=== PATIENT | female | born 1950 | race Hispanic/Latino ===

== ENCOUNTER 2017-05-23 07:43 | Day surgery (SDC) | payer BC ==
[2017-05-14 12:15] VITALS: BMI 30.4
--- NOTE | 2017-05-22 13:43 | HP ---
DATE OF ADMISSION: 05/22/2017 REASON FOR ADMISSION: Left heart catheterization, possible angioplasty. BRIEF CLINICAL HISTORY: This is a 66-year-old female with past medical history of diabetes, hypertension, hyperlipidemia, who had stress test abnormal. The patient is scheduled for elective cardiac catheterization and possible angioplasty. PAST MEDICAL HISTORY: Significant for diabetes, hypertension, and hyperlipidemia. SOCIAL HISTORY: Denies smoking. Denies any history of alcohol abuse. PREVIOUS CARDIAC WORKUP: As follows. The patient had echocardiography done in [facility] on 04/22/2017, that shows normal chamber with ejection fraction of 60-65%, trace mitral regurgitation, tricuspid regurgitation, trace aortic regurgitation, trace PI, RV systolic pressure of 20. Ejection fraction is 60-65% dated 04/22/2017. The patient had a stress test on 04/22/2017 that showed equivocal SPECT myocardial perfusion study, partially reversible apical defect probably secondary to ischemic versus shifting position of the graft. Ischemia cannot be ruled out in the apical segment. Ejection fraction is 76%. CURRENT MEDICATIONS: The patient is taking glipizide 5 mg daily in the morning, 2.5 at night, vitamin D3 50,000 units, Amitiza 8 mcg daily, metformin 500 p.o. b.i.d., amlodipine 5 mg daily, omeprazole 40 mg daily, and atorvastatin 10 mg daily. ALLERGIES: No known drug allergies. REVIEW OF SYSTEMS: As per HPI. PHYSICAL EXAMINATION: VITAL SIGNS: As follows: Height of the patient 5 feet 7 inches, weight of the patient 194, body mass index 30.4 kg per meter square, heart rate is 80, and blood pressure 120/70. HEENT: PERRLA. Extraocular muscles intact. NECK: Supple. No carotid bruit or thyromegaly. CHEST: Clear to auscultation. HEART: S1 and S2, regular. ABDOMEN: Soft. EXTREMITIES: Clubbing and cyanosis negative. LABORATORY DATA: Blood workup pending. IMPRESSION AND PLAN: Abnormal stress test suggestive of apical ischemia. Ejection fraction is 76% by stress test. By echocardiogram, ejection fraction 65%. Trace mitral regurgitation, trace tricuspid regurgitation, trace PI, diabetes, hypertension, hyperlipidemia, obesity, multiple risk factors for coronary artery disease, abnormal stress test, suggest cardiac catheterization. Benefits and alternatives discussed with the patient. The patient agreed to proceed with cardiac catheterization. We will load with aspirin, Plavix. Further recommendation after cardiac catheterization. We will follow with you. Thank you Dr. Rodriguez/Dr. Knowles for providing opportunity in taking care of the patient Lisa Pablo. Leigh Casey MD
[2017-05-23 08:14] LABS: BASO # 0.02 K/mm3 (0.0-2.0); BASO % 0.2 % (0.0-3.0); EOS # 0.2 (0.0-0.7); EOS % 2.4 % (1.5-5.0); GRAN # 6.1 (1.4-6.5); HEMATOCRIT 37.1 % (36.0-48.0); LYMPH # 1.3 (1.2-3.4); LYMPH % 15.5 % (22.0-35.0); MEAN CELL VOLUME 84.5 fl (80.0-105.0); MEAN CORPUSCULAR HEMOGLOBIN 25.7 pg (25.0-35.0); MEAN CORPUSCULAR HGB CONC 30.5 g/dl (31.0-37.0); MONO # 0.7 (0.1-0.6); MONO % 7.9 % (1.0-6.0); RED CELL DISTRIBUTION WIDTH 16.2 % (11.5-14.5); WHITE BLOOD COUNT 8.3 10^3/ul (4.5-11.0)
[2017-05-23 08:23] LABS: INR 0.94 (0.93-1.08); PARTIAL THROMBOPLASTIN TIME 27.2 Seconds (23.7-30.8)
[2017-05-23 08:25] VITALS: O2SAT 95
[2017-05-23 08:25] LABS: BLOOD UREA NITROGEN 16 mg/dL (7-21); CALCIUM 9.7 mg/dL (8.4-10.5); CARBON DIOXIDE 29 mmol/L (21-33); CHLORIDE 103 mmol/L (98-107); CHOLESTEROL 212 mg/dL (130-200); GFR AFRICAN-AMERICAN > 60; GLUCOSE,RANDOM 126 mg/dL (70-110); POTASSIUM 3.7 mmol/L (3.6-5.0); SODIUM 144 mmol/L (132-148)
[2017-05-23] MEDS ORDERED: Lidocaine 2% Inj (20ml) ONE (09:40)
[2017-05-23] MEDS ORDERED: Iodixanol 320 mg/ml 150 ml Bottle IV ONE (09:42)
[2017-05-23] MEDS ORDERED: Iodixanol 320 MG/ML 200 ML BOTTLE IV ONE (09:43)
[2017-05-23] MEDS ORDERED: Nitroglycerin 50mg in D5W 50 MG/250 ML BOTTLE IV ONE (09:45)
[2017-05-23] MEDS ORDERED: Midazolam 2 MG/2 ML VIAL ONE (10:13)
[2017-05-23] MEDS ORDERED: Eptifibatide 0.75 mg/ml 0 MG/0 ML BOTTLE IV ONE (10:37)
[2017-05-23] MEDS ORDERED: Eptifibatide 20 mg/10mL Inj IVP ONE ×2 (10:38→10:55)
[2017-05-23] MEDS ORDERED: Adenosine 90 mg/30mL IV ONE (10:39)
[2017-05-23] MEDS ORDERED: Iohexol 350mgl/ml 50 ML ONE (10:54)
[2017-05-23] MEDS ORDERED: Sodium Chloride 0.9% 1,000 ML IV SCH (11:45)
[2017-05-23 14:26] LABS: BASO # 0.02 K/mm3 (0.0-2.0); BASO % 0.3 % (0.0-3.0); EOS # 0.1 (0.0-0.7); EOS % 1.5 % (1.5-5.0); GRAN # 6.12 (1.4-6.5); GRAN % 77.8 % (50.0-68.0); HEMATOCRIT 34.5 % (36.0-48.0); LYMPH # 1.1 (1.2-3.4); LYMPH % 14.4 % (22.0-35.0); MEAN CELL VOLUME 85.2 fl (80.0-105.0); MEAN CORPUSCULAR HEMOGLOBIN 26.4 pg (25.0-35.0); MEAN PLATELET VOLUME 10.4 fl (7.0-11.0); MONO # 0.5 (0.1-0.6); RED CELL DISTRIBUTION WIDTH 16.1 % (11.5-14.5); WHITE BLOOD COUNT 7.9 10^3/ul (4.5-11.0)
[2017-05-23 14:35] LABS: BLOOD UREA NITROGEN 15 mg/dL (7-21); CALCIUM 9.1 mg/dL (8.4-10.5); CARBON DIOXIDE 26 mmol/L (21-33); CHLORIDE 101 mmol/L (98-107); GFR AFRICAN-AMERICAN > 60; GLUCOSE,RANDOM 210 mg/dL (70-110); POTASSIUM 3.8 mmol/L (3.6-5.0); SODIUM 140 mmol/L (132-148)
--- NOTE | 2017-05-23 15:03 | CARD ---
APPROVED REPORT Procedure(s) performed: Left Heart Catheterization FFR of RCA.........0.75 in 0.51 seconds PTCA with Stenting of Mid RCA with JAYLA HISTORY The patient is a 66 year-old female with a history of : diabetes mellitus with treatment , hypertension , dyslipidemia , Had an abnormal stress test. INDICATION The indication(s) include : positive stress test. CASE TECHNIQUE The patient was brought electively to the Cardiac Catheterization Laboratory in a fasting state and was prepped and draped in a sterile manner. The left wrist was infiltrated with 2% Lidocaine subcutaneous anesthesia. A sheath was inserted into the left radial artery without difficulty. Coronary angiography was performed using coronary diagnostic catheters. The left coronary system was accessed and visualized with a Diagnostic ,jl3.5,5fR catheter. The right coronary system was accessed and visualized with a Diagnostic ,jR 3.5,5fR catheter. The left ventricle was accessed and visualized with a PIG TAIL catheter. Left ventricular/Aortic Valve gradient assessed on pullback. Left ventriculogram was performed in MCDERMOTT projection. Closure device was deployed with a Fr tr BAND without any complications. The patient tolerated the procedure well and there were no complications associated with the procedure. Vessel Analysis The patient's coronary anatomy is right dominant. The left main coronary artery is a large size vessel with diffuse calcification noted throughout this vessel and without significant stenosis. There is a 10-20% stenosis in the distal segment. The left main bifurcates to the left anterior descending and circumflex. The left anterior descending artery is a medium size vessel with diffuse calcification noted throughout this vessel and without significant stenosis. The first diagonal branch is a medium size vessel with diffuse calcification noted throughout this vessel and without significant stenosis. The second diagonal branch is a small size vessel with diffuse calcification noted throughout this vessel and without significant stenosis. The circumflex artery is a medium size vessel with diffuse calcification noted throughout this vessel and without significant stenosis. There is a 30-40% stenosis in the proximal segment. The right coronary artery is a large size vessel with diffuse calcification noted throughout this vessel and with significant stenosis. There is a 70-80% stenosis in the mid segment. The right posterior descending artery is a medium size vessel with diffuse calcification noted throughout this vessel and without significant stenosis. Left Ventricle The left ventricle is NORMAL in size with Normal contractility. There was no cardiomyopathy. The left ventricular ejection fraction is estimated to be 65%. The left ventricular end diastolic pressure is 20-25 mmHg. There was no gradient across the aortic valve upon pullback. PCI Technique Lesion Anticoagulation was achieved with Heparin. Percutaneous coronary intervention was performed on the mid right coronary artery. The lesion stenosis prior to intervention was 70-80% with MARGARETTE 2 flow. A AL 0.75 Guide Catheter was used to engage the ostium. BALLOON DILATION A Balloon catheter 2.5/15 was inserted and inflated up to 10atm for 20seconds. STENT DEPLOYMENT A drug-eluting stent 3.0/22 was inserted and inflated up to 12atm for 20seconds. POST STENT DEPLOYMENT BALLOON DILATION A Balloon catheter 3.25/15 was inserted and inflated up to 12atm for 20seconds. Final angiography reveals 0 % stenosis with MARGARETTE 3 flow. Conclusion One Vessel CAD involving Mid RCA 70-80%. Preserved Lv Fx, EF-65%, EDP-20-25 mmof Hg. FFR of MID RCA Showed 0.75 in 0.51 seconds of infusion of adenosine. Successul PTCA with JAYLA of Mid RCA. Recommendations Cardiac Rehabilitation ReferralDaily ASA with Plavix for at least one year Aggressive Medical TherapyCardiac Risk Reduction Program Weight Loss Reduction Program CC; Daniel Tabares/ Eleni.
[2017-05-23 16:42] VITALS: BP 158/88
[2017-05-23 17:34] VITALS: PULSE 98; RESP 20; TEMP 98.8
--- NOTE | 2017-05-23 17:48 | CARD ---
APPROVED REPORT EKG Measurement Heart [id number] <Conclusion> Sinus tachycardia Inferior infarct, age undetermined Anterior infarct, age undetermined Abnormal ECG
== END 2017-05-23 21:57 | disposition home or self-care (01) ==
LOC: CATH 07:43 → 2RSO 11:36 → CATH 21:57
PROVIDERS: ATTEND Internal Medicine Cardiovascular Disease
DX: I25.10 Atherosclerotic heart disease of native coronary artery without angina pectoris (principal); I08.1 Rheumatic disorders of both mitral and tricuspid valves; I10 Essential (primary) hypertension; E11.9 Type 2 diabetes mellitus without complications; E78.5 Hyperlipidemia, unspecified; E66.9 Obesity, unspecified; Z68.30 Body mass index [BMI] 30.0-30.9, adult; Z79.84 Long term (current) use of oral hypoglycemic drugs
CPT/HCPCS: 36415; 80048; 80061; 85025; 85175; 85610; 85730; 86850; 86900; 93005; 93458; 93571; 99152; 99153; C1725 ×2; C1769 ×2; C1874; C1887 ×4; C9600; J0153; J1327; J1644 ×2; J1940; J2250; J2405; J3010; J7030; Q9967